=== PATIENT | male | born 1990 | race Hispanic/Latino ===

== ENCOUNTER 2020-12-10 04:45 | Inpatient (IN) | payer OTHER ==
[~2020-12-10] VITALS: Ht 172.7 cm; Wt 108.6 kg
[2020-12-10] MEDS ORDERED: ONDANSETRON HCL 4 MG/2 ML VIAL ONE (04:50)
[2020-12-10] MEDS ORDERED: MORPHINE SULFATE 4 MG/1ML SYG ONE ×2 (04:51→05:52)
[2020-12-10 05:06] LABS: BASOPHILS % (AUTO) 0.4 % (0.0-5.0); EOSINOPHILS % (AUTO) 0.1 % (0.0-8.0); HEMATOCRIT 48.4 % (42-54); LYMPHOCYTES % (AUTO) 9.2 % (21.0-51.0); MEAN CORPUSCULAR HEMOGLOBIN 29.7 pg (27.0-33.0); MEAN CORPUSCULAR HGB CONC 33.7 g/dL (32.0-36.0); MEAN CORPUSCULAR VOLUME 88.2 fL (79-99); MONOCYTES % (AUTO) 3.9 % (3.0-13.0); NEUTROPHILS % (AUTO) 85.9 % (40.0-77.0); PLATELET COUNT (AUTO) 292 K/uL (130-400); RED BLOOD CELL COUNT(AUTO) 5.49 MIL/uL (4.50-6.20); RED CELL DISTRIBUTION WIDTH 11.9 % (11.0-15.5); WHITE BLOOD COUNT (AUTO) 15.5 K/uL (4.8-10.8)
[2020-12-10 05:14] LABS: CREATININE 1.4 mg/dL (0.5-1.5); POTASSIUM 3.8 mmol/L (3.5-5.1)
[2020-12-10 05:19] LABS: ALBUMIN 4.6 g/dL (3.5-5.0); BILIRUBIN,TOTAL 0.7 mg/dL (0.2-1.0); INR 1.02 (0.85-1.15); PROTHROMBIN TIME 10.9 SEC (9.6-11.6); TOTAL PROTEIN, SERUM 9.2 g/dL (6.0-8.3)
[2020-12-10 05:21] LABS: PARTIAL THROMBOPLASTIN TIME 25.3 SEC (26.3-35.5)
[2020-12-10] MEDS: ENOXAPARIN SODIUM 40 MG/0.4 ML SYRINGE SQ SCH (09:00)
[2020-12-10 09:30] VITALS: BP 145/83
[2020-12-10] MEDS ORDERED: ACETAMINOPHEN 325 MG TAB PO PRN (09:30)
[2020-12-10] MEDS ORDERED: ONDANSETRON HCL 4 MG/2 ML VIAL IVP PRN (09:30)
[2020-12-10] MEDS ORDERED: MORPHINE SULFATE 2 MG/ML 1ML SYG ONE (09:33)
[2020-12-10] MEDS ORDERED: ENOXAPARIN SODIUM 40 MG/0.4 ML SYRINGE SQ ONE (09:34)
[2020-12-10 11:24] VITALS: BP 140/89
[2020-12-10] MEDS: MORPHINE SULFATE 2 MG/ML 1ML SYG IVP PRN (13:29)
[2020-12-10] MEDS: DEXTROSE 5 % AND 0.9 % NACL 1,000 ML IV SCH (15:54)
[2020-12-10 16:00] VITALS: BP 138/80
[2020-12-10] MEDS ORDERED: MIDAZOLAM HCL 1 MG/ML 2ML VIAL ONE (16:21)
[2020-12-10] MEDS ORDERED: FENTANYL CITRATE PF 50 MCG/1 ML 2ML VIAL ONE (16:22)
[2020-12-10] MEDS ORDERED: ROPIVACAINE 0.5% 5MG/ML 30ML IJ ONE (16:24)
[2020-12-10 19:57] VITALS: BP 136/73
[2020-12-10 23:39] VITALS: BP 129/79
[2020-12-11] VITALS (26 sets, daily range): BP systolic 119–157; BP diastolic 63–100
[2020-12-11] MEDS: DEXTROSE 5 % AND 0.9 % NACL 1,000 ML IV SCH ×2 (00:55→15:42)
[2020-12-11] MEDS: MORPHINE SULFATE 2 MG/ML 1ML SYG IVP PRN ×2 (01:14→05:07)
[2020-12-11] MEDS: ENOXAPARIN SODIUM 40 MG/0.4 ML SYRINGE SQ SCH (09:00)
[2020-12-11] MEDS ORDERED: ONDANSETRON HCL 4 MG/2 ML VIAL ONE (11:35)
[2020-12-11] MEDS ORDERED: LIDOCAINE PF 2% 5ML ABBOJECT ONE ×2 (11:35→11:37)
[2020-12-11] MEDS ORDERED: GLYCOPYRROLATE 1 MG/5 ML SYRINGE ONE (11:35)
[2020-12-11] MEDS ORDERED: DEXAMETHASONE SOD PHOSPHATE 10MG/ML 1ML VIAL ONE (11:35)
[2020-12-11] MEDS ORDERED: SUCCINYLCHOLINE CHLORIDE 20 MG/ML 10 ML VIAL ONE ×2 (11:35→11:37)
[2020-12-11] MEDS ORDERED: PROPOFOL 10 MG/ML 20ML VIAL IV ONE (11:35)
[2020-12-11] MEDS ORDERED: MIDAZOLAM HCL 1 MG/ML 2ML VIAL ONE (11:36)
[2020-12-11] MEDS ORDERED: FENTANYL CITRATE PF 50 MCG/1 ML 2ML VIAL ONE ×2 (11:36→14:31)
[2020-12-11] MEDS ORDERED: NEOSTIGMINE 5MG/5ML SYR IV ONE (11:36)
[2020-12-11] MEDS ORDERED: ROCURONIUM 10MG/1ML SYR 10 MG/ML ML ONE (11:36)
[2020-12-11] MEDS ORDERED: CEFAZOLIN SODIUM 1 GM VIAL ONE (11:40)
[2020-12-11] MEDS ORDERED: MEPERIDINE-PF 25 MG/ML SYG ONE ×2 (11:58→15:12)
[2020-12-11] MEDS: SODIUM CHLORIDE 0.9% 1000ML 1,000 ML IV SCH ×2 (15:15→20:22)
[2020-12-11] MEDS: ACETAMINOPHEN EXTRA STRENGTH 500 MG TABLET PO SCH ×2 (15:15→23:35)
[2020-12-11] MEDS ORDERED: DIPHENHYDRAMINE HCL 25 MG CAPSULE PO PRN (15:15)
[2020-12-11] MEDS ORDERED: POTASSIUM CHLORIDE 10% ELIXIR 20 MEQ/15 ML UDCUP PO PRN (15:15)
[2020-12-11] MEDS ORDERED: HYDROCODONE/ACETAMINOPHEN 5/325 MG TAB PO PRN ×2 (15:15)
[2020-12-11] MEDS ORDERED: POTASSIUM CHLORIDE 20MEQ/100ML 100 ML IV PRN (15:15)
[2020-12-11] MEDS ORDERED: POTASSIUM CHLORIDE 20 MEQ ERTAB PO PRN (15:15)
[2020-12-11] MEDS ORDERED: FERROUS FUMARATE 324 MG TABLET PO PRN (15:15)
[2020-12-11] MEDS ORDERED: CALCIUM CARBONATE 500 MG TABLET PO PRN (15:15)
[2020-12-11] MEDS ORDERED: DiphenhydrAMINE HCL 50 MG/ML VIAL IVP PRN (15:15)
[2020-12-11] MEDS: CEFAZOLIN SODIUM 1 GM VIAL IVP SCH (20:22)
[2020-12-12 03:57] VITALS: BP 120/70
[2020-12-12] MEDS: CEFAZOLIN SODIUM 1 GM VIAL IVP SCH (04:09)
[2020-12-12] MEDS: DEXTROSE 5 % AND 0.9 % NACL 1,000 ML IV SCH (06:30)
[2020-12-12 07:30] VITALS: BP 127/73
[2020-12-12] MEDS: POLYETHYLENE GLYCOL 3350 17 GM POWD.PACK PO SCH (09:09)
[2020-12-12] MEDS: ACETAMINOPHEN EXTRA STRENGTH 500 MG TABLET PO SCH ×2 (09:09→15:01)
[2020-12-12] MEDS: ENOXAPARIN SODIUM 40 MG/0.4 ML SYRINGE SQ SCH (09:10)
[2020-12-12 11:00] VITALS: BP 109/63
[2020-12-12] MEDS: SODIUM CHLORIDE 0.9% 1000ML 1,000 ML IV SCH (11:15)
[2020-12-12] MEDS: PSYLLIUM SEED 1 EACH PACKET PO SCH (12:17)
[2020-12-12 16:00] VITALS: BP 131/73
[2020-12-12 20:00] VITALS: BP 141/81
[2020-12-13] VITALS: BP 138/62
[2020-12-13] MEDS: ACETAMINOPHEN EXTRA STRENGTH 500 MG TABLET PO SCH ×2 (00:05→08:32)
[2020-12-13 04:00] VITALS: BP 116/67
[2020-12-13 08:00] VITALS: BP 122/76
[2020-12-13] MEDS: ENOXAPARIN SODIUM 40 MG/0.4 ML SYRINGE SQ SCH ×2 (08:32→09:00)
[2020-12-13] MEDS: POLYETHYLENE GLYCOL 3350 17 GM POWD.PACK PO SCH ×2 (08:32→09:00)
[2020-12-13 12:00] VITALS: BP 127/54
[2020-12-13] MEDS: PSYLLIUM SEED 1 EACH PACKET PO SCH (12:00)
[2020-12-13] MEDS ORDERED: BISACODYL 5 MG TABLET.DR PO PRN (15:15)
[2020-12-13 16:00] VITALS: BP 125/73
[2020-12-14] MEDS ORDERED: BISACODYL 10 MG SUPP.RECT RC PRN (15:15)
== END 2020-12-13 18:06 | DRG 505 ==
LOC: EDH 04:45 → EEVIPCON 06:10 → EDHIP 06:10 → 3DH 09:33
PROVIDERS: ADMIT Internal Medicine Infectious Disease; ATTEND Internal Medicine Infectious Disease
PROC: 0QSM04Z Reposition Left Tarsal with Internal Fixation Device, Open Approach (ICD-10-PCS; principal; 2020-12-11 11:30)
DX: S92.112A Displaced fracture of neck of left talus, initial encounter for closed fracture (principal); E66.9 Obesity, unspecified; D72.829 Elevated white blood cell count, unspecified; N28.9 Disorder of kidney and ureter, unspecified; F17.200 Nicotine dependence, unspecified, uncomplicated; Z20.822 Contact with and (suspected) exposure to COVID-19; W01.0XXA Fall on same level from slipping, tripping and stumbling without subsequent striking against object, initial encounter; Y93.89 Activity, other specified; Y92.89 Other specified places as the place of occurrence of the external cause; Y99.8 Other external cause status; Z68.36 Body mass index [BMI] 36.0-36.9, adult
CPT/HCPCS: 36415; 73610; 73630; 73700; 80053; 85025; 85610; 85730; 87426; 97039; G0378; J0330; J0690; J1100; J1650; J2001; J2175; J2250; J2270; J2405; J2704; J2710; J2795; J3010; J3490; J7030; J7042; U0003